=== PATIENT | female | born 1985 | race Caucasian/White ===

== ENCOUNTER 2021-07-30 00:25 | Emergency (ER) | payer MEDICAID ==
[~2021-07-30] VITALS: Ht 177.8 cm; Wt 68.2 kg
[2021-07-30 02:31] LABS: BASOPHILS # (AUTO) 0.1 X10'3 (0-0.2); BASOPHILS % (AUTO) 0.9 % (0-1); EOSINOPHILS # (AUTO) 0.1 X10'3 (0-0.9); EOSINOPHILS % (AUTO) 0.4 % (0-6); HEMATOCRIT 39.7 % (35.0-45.0); HEMOGLOBIN 13.3 g/dl (12.0-16.0); LYMPHOCYTES # (AUTO) 1.9 X10'3 (1.1-4.8); LYMPHOCYTES % (AUTO) 14.9 % (21-51); MEAN CORPUSCULAR HEMOGLOBIN 31.2 PG (27.0-31.0); MEAN CORPUSCULAR HGB CONC 33.5 g/dL (33.0-36.5); MONOCYTES # (AUTO) 0.7 X10'3 (0-0.9); MONOCYTES % (AUTO) 5.8 % (2-12); PLATELET COUNT 363 X10'3 (140-440); RED BLOOD COUNT 4.27 X10'6 (4.20-5.60); RED CELL DISTRIBUTION WIDTH 13.1 % (11.5-14.5); WHITE BLOOD COUNT 12.9 X10'3 (4.5-11.0)
[2021-07-30 02:35] LABS: URINE HCG NEGATIVE (NEG)
[2021-07-30 02:44] LABS: ALANINE AMINOTRANSFERASE 31 U/L (12-78); ALBUMIN 4.3 G/DL (3.4-5.0); ALBUMIN/GLOBULIN RATIO 1.1 (1.1-1.5); ALKALINE PHOSPHATASE 70 IU/L (46-116); ANION GAP 14 (8-16); ASPARTATE AMINO TRANSFERASE 32 U/L (10-37); BILIRUBIN,TOTAL 0.8 MG/DL (0.1-1.0); BLOOD UREA NITROGEN 30 MG/DL (7-18); BUN/CREATININE RATIO 23.8 (6.6-38.0); CALCIUM 9.5 MG/DL (8.5-10.1); CHLORIDE 100 MMOL/L (99-107); CREATININE 1.26 MG/DL (0.40-0.90); ETHANOL < 0.010 GM/DL (0.0-0.010); GLUCOSE 131 MG/DL (70-104); POTASSIUM 3.2 MMOL/L (3.5-5.1); SODIUM 139 MMOL/L (135-145); TOTAL CARBON DIOXIDE 25.2 MMOL/L (24-32); TOTAL PROTEIN 8.2 G/DL (6.4-8.2); eGFR 48 ML/MIN
[2021-07-30 02:46] LABS: URINE AMPHETAMINE SCREEN POSITIVE (Neg); URINE BARBITUATE SCREEN NEGATIVE (Neg); URINE BENZODIAZEPINES SCREEN NEGATIVE (Neg); URINE CANNABINOID SCREEN POSITIVE (Neg); URINE COCAINE SCREEN NEGATIVE (Neg); URINE METHADONE SCREEN NEGATIVE (Neg); URINE OPIATE SCREEN NEGATIVE (Neg); URINE PHENCYCLIDINE SCREEN NEGATIVE (Neg)
--- NOTE | 2021-07-30 02:59 | NUR ---
pt resting in bed on left side resting with eyes closed. no s/s of distress at this time.
[2021-07-30] MEDS ORDERED: NO HOME MEDS (03:02)
[2021-07-30] MEDS ORDERED: OLANZapine 2.5MG tablet PO STA (03:16)
[2021-07-30] MEDS ORDERED: LORazepam 1 MG tablet PO ONE (03:20)
--- NOTE | 2021-07-30 03:30 | NUR ---
pt yelling at staff and pounding on wall stating wants medication to sleep. obtained oders from md for medications to help sleep, attempted to give. pt uncoorperative and making vulgar statements wowards staff and proposal writer. pt eventually took medications ordered and threw water cup at staff.
[2021-07-30] MEDS ORDERED: diphenhydrAMINE 50 mg/ml inj IM ONE (03:40)
[2021-07-30] MEDS ORDERED: LORazepam 2 mg/ml vial IM ONE (03:40)
[2021-07-30] MEDS ORDERED: haloperidol lactate 5mg/ml inj IM ONE (03:40)
--- NOTE | 2021-07-30 04:03 | NUR ---
pt up and pacing around room and kept closing curtains. educated pt on rules and to keep curtains open or they will be ziptied. pt continued to close so staff zip tied curtains. pt left room unattended while staff busy and was found to be in restroom. pt back in room, pacing and washing self in room sink. pt talking to self in tangential scattered statements.
[2021-07-30] MEDS ORDERED: OLAN15TA35 PO (04:46)
[2021-07-30] MEDS ORDERED: HYDR-3927 PO (04:46)
[2021-07-30] MEDS ORDERED: hydrOXYzine 25 MG tablet PO PRN (05:05)
--- NOTE | 2021-07-30 05:31 | NUR ---
pt laying in bed, tearful and talking to self.
--- NOTE | 2021-07-30 05:43 | NUR ---
pt undressed and stood in hallway asking for her clothing and belongings. when redirected to room. pt charged at staff and attempted spitting then ran into room, and started slamming and hitting glass doors. when pt told to dress, she stated "i don't care i'll walk around naked". pt medicated with IM medications ordered and placed on gurney. pt currently laying on right side with blanket and eyes closed.
--- NOTE | 2021-07-30 06:15 | NUR ---
first contact with pt. found resting in bed, no distress. no needs at this time.
[2021-07-30 12:30] VITALS: BP 132/78
--- NOTE | 2021-07-30 13:20 | NUR ---
mental health nurse at bedside speaking with pt.
--- NOTE | 2021-07-30 14:23 | NUR ---
connie chapa called, requesting UA and TSH labs for pt. will fax to [phone]
[2021-07-30 15:19] LABS: CLARITY,URINE CLEAR (Clear); COLOR,URINE YELLOW (Yellow); GLUCOSE, URINE NEGATIVE (Neg); KETONES,URINE 15 mg/dl (Neg); LEUKOCYTE ESTERASE ,URINE NEGATIVE (Neg); NITRITES, URINE NEGATIVE (Neg); OCCULT BLOOD,URINE NEGATIVE (Neg); PH,URINE 5.5 (4.8-8.0); PROTEIN,URINE NEGATIVE (Neg); UROBILINOGEN,URINE 0.2 E.U/dL (0.2-1.0)
[2021-07-30 15:29] LABS: UA COLLECTION TYPE CLN CATCH MIDSTREAM
--- NOTE | 2021-07-30 15:41 | NUR ---
telephone report to lang olivarez at [facility]. all questions answered at this time.
[2021-07-30] MEDS ORDERED: POTASSIUM BICARB 20meq eff tab 20 MEQ TABLET.EFF PO SCH (16:30)
--- NOTE | 2021-07-30 17:29 | NUR ---
Pt will transfer to [facility]. Accepted by NAZARIO Prescott at 1530. non clinical contact, [place]. will go at 2030. charge nurse informed.
--- NOTE | 2021-07-30 18:46 | NUR ---
PATIENT RESTING IN BED LIGHTS OUT AWAITING TRANSFER
--- NOTE | 2021-07-30 19:07 | NUR ---
SAFETY DINNER TRAY PROVIDED
[2021-07-30] MEDS ORDERED: OLANZAPINE 5 MG TABLET PO SCH (21:00)
== END 2021-07-30 22:15 ==
LOC: ER 00:26
DX: F29 Unspecified psychosis not due to a substance or known physiological condition (principal); Z20.822 Contact with and (suspected) exposure to COVID-19; F20.9 Schizophrenia, unspecified; R45.1 Restlessness and agitation
CPT/HCPCS: 36415; 80053; 80305; 80320; 81003; 81025; 84443; 85025; 87635; 96372; 99285; C9803; J1200; J1630; J2060